=== PATIENT | female | born 1965 | race Caucasian/White ===

== ENCOUNTER 2019-01-02 09:37 | Day surgery (SDC) | payer OTHER ==
[~2019-01-02 09:37] MED LIST: BRIMONIDINE 0.2% OPHTH DROPS 5 ML EACHEYE ONE; BSS/LIDOCAINE/EPINEPHRINE 1 ML SYRINGE ONE; CYCLOPENTOLATE 1% OPHTH DROPS 2 ML ONE; EPINEPHrine 1 MG/ML AMP ONE; KETOROLAC 0.45% OPHTH DROPS ONE; PHENYLEPHRINE 2.5% OPHTH 2 ML DROPS ONE; PROPARACAINE 0.5% OPHTH DROPS 15 ML ONE; TIMOLOL 0.5% OPHTH DROPS EACHEYE ONE; TRIAMCIN/MOXIFLOX OPHTHALMIC 0.6 ML VIAL IO ONE; VANCOMYCIN OPHTHALMI 8MG/0.8ML 8 MG/0.8 ML SYRINGE IO ONE
[2019-01-02] MEDS ORDERED: KETOROLAC 0.45% OPHTH DROPS LEFTEYE ONE (10:05)
[2019-01-02] MEDS ORDERED: PHENYLEPHRINE 2.5% OPHTH 2 ML DROPS LEFTEYE ONE (10:05)
[2019-01-02] MEDS ORDERED: PROPARACAINE 0.5% OPHTH DROPS 15 ML LEFTEYE ONE ×2 (10:05→10:44)
[2019-01-02] MEDS ORDERED: CYCLOPENTOLATE 1% OPHTH DROPS 2 ML LEFTEYE ONE (10:05)
[2019-01-02] MEDS ORDERED: LACTATED RINGERS 500 ML IV ONE (10:15)
--- NOTE | 2019-01-02 10:22 | ANESTHESIA ---
Pre-Anesthesia VS, & Labs - Diagnosis Posterior subcapsular cataract - Procedure Left phaco with IOL implant - NPO Other (8 oz water at 0745) - Is Patient ?: No Home Medications and Allergies Home Medications: Ambulatory Orders Metoprolol Tartrate 01/02/19 hydroCHLOROthiazide [Hydrochlorothiazide] 01/02/19 Allergies/Adverse Reactions: Allergies Allergy/AdvReac Type Severity Reaction Status Date / Time No Known Drug Allergies Allergy Verified 01/02/19 10:11 Anes History & Medical History - Anesthetic History Anesthesia Complications: reports: No previous complications Family history of Anesthesia Complications: Denies Family history of Malignant Hyperthermia: Denies - Medical History Cardiovascular: reports: Hypertension Pulmonary: reports: None Gastrointestinal: reports: None Urinary: reports: None Neuro: reports: None Musculoskeletal: reports: None Endocrine/Autoimmune: reports: None Blood Disorders: reports: None Skin: reports: None Smoking Status: Never smoker Psychosocial: reports: No issues indicated Exam General: Alert, Oriented x3 Dental: WNL Mouth Opening: Greater than 4 Fingerbreadths Neck Mobility: Normal Mallampati classification: I Respiratory: Lungs clear Cardiovascular: Regular rate Mental/Cognitive Status: Alert/Oriented X3 Cognitive Status: Within normal limits Plan Anesthesia Type: MAC Consent for Procedure(s) Verified and Reviewed: Yes Code Status: Attempt Resuscitation ASA classification: 2-Mild systemic disease Is this case an emergency?: No
[2019-01-02] MEDS ORDERED: PROPOFOL 200 MG/20 ML VIAL IVP ONE (10:37)
[2019-01-02] MEDS ORDERED: MIDAZOLAM 2 MG/2 ML VIAL IVP ONE (10:37)
[2019-01-02] MEDS ORDERED: fentaNYL 100 MCG/2 ML VIAL IVP ONE (10:37)
[2019-01-02] MEDS ORDERED: BRIMONIDINE 0.2% OPHTH DROPS 5 ML OPTH ONE (10:42)
[2019-01-02] MEDS ORDERED: EPINEPHrine 1 MG/ML AMP IVP ONE (10:42)
[2019-01-02] MEDS ORDERED: BSS/LIDOCAINE/EPINEPHRINE 1 ML SYRINGE IO ONE (10:43)
[2019-01-02] MEDS ORDERED: CHONDR SULF/HYALURONATE SYRINGE IO ONE (10:43)
[2019-01-02] MEDS ORDERED: TIMOLOL 0.5% OPHTH DROPS OPTH ONE (10:43)
[2019-01-02] MEDS ORDERED: TRIAMCIN/MOXIFLOX OPHTHALMIC 0.6 ML VIAL IO ONE (10:44)
[2019-01-02] MEDS ORDERED: VANCOMYCIN OPHTHALMI 8MG/0.8ML 8 MG/0.8 ML SYRINGE IO ONE (10:44)
--- NOTE | 2019-01-02 11:00 | OPERATIVE REPORT ---
DATE OF SERVICE: 01/02/2019 Physician: Shiraz Villar MD PREOPERATIVE DIAGNOSIS: Visually significant cataract, left eye. This was her first cataract surger y. POSTOPERATIVE DIAGNOSIS: Visually significant cataract, left eye. This was her first cataract surge ry. DESCRIPTION OF PROCEDURE: Phacoemulsification with posterior chamber intraocular lens implant, left eye. SURGEON: Shiraz Villar MD ANESTHESIA: Monitored anesthesia care. COMPLICATIONS: None. OPERATIVE INDICATIONS: This is a 53-year-old woman with progressive vision loss in the left eye due to trace nuclear sclerotic, 2+ cortical and 2+ posterior subcapsular cataract. Best corrected visual acuity was 20/40, with glare to hand motion vision in the left eye. Indications for surgery are ove rall decrease in vision, difficulty seeing words on a computer screen, difficulty reading, difficulty seeing words, closed caption or game scores on TV, difficulty seeing street signs, difficulty drivin g in low light or at night, difficulty driving at night because of headlights from other vehicles and difficulty with glare or bright lights in any situation, and difficulty tracking a golf ball. She w as consented at length concerning risks and benefits of cataract surgery, after which she expressed a desire to proceed with surgery. OPERATIVE PROCEDURE: The patient was taken to OR #2 and placed under monitored anesthesia care. A s urgical timeout was conducted confirming correct patient, correct procedure, and correct surgical sit e. She was given topical anesthesia, and prepped and draped in the usual sterile fashion. The eye w as entered at the 6 and 3 o'clock positions. Intracameral Shugarcaine was injected into the anterior chamber, followed by Viscoat. A continuous-tear curvilinear capsulorrhexis was performed. The nucl eus was hydrodissected and phacoemulsified. The cortex was evacuated using automated infusion and as piration. Provisc was injected in the capsular bag, and a 17.5 diopter intraocular lens inserted in the bag. Approximately 0.8 mL of a mixture of triamcinolone, moxifloxacin and vancomycin was injecte d subconjunctivally in the superior quadrant for infection and inflammation prophylaxis. I and A, wa s used to evacuate the viscoelastic materials. The eye was inflated to physiologic pressure using ba lanced salt solution and found to be watertight. The patient was taken from the operating room in go od condition and given postoperative instructions. TD: 01/02/2019 10:56
[2019-01-02 11:12] VITALS: BP 158/90
== END 2019-01-02 09:38 | disposition home or self-care (01) ==
LOC: SDS 09:37
PROVIDERS: ATTEND Ophthalmology
PROC: 08RK3JZ Replacement of Left Lens with Synthetic Substitute, Percutaneous Approach (ICD-10-PCS; principal; 2019-01-02 11:00)
DX: H26.8 Other specified cataract (principal); I10 Essential (primary) hypertension; Z79.899 Other long term (current) drug therapy
CPT/HCPCS: 66984; A9270; J3490; V2632

== ENCOUNTER 2019-01-30 08:34 | Day surgery (SDC) | payer OTHER ==
[~2019-01-30 08:34] MED LIST changes: -BRIMONIDINE 0.2% OPHTH DROPS 5 ML EACHEYE ONE; +BRIMONIDINE 0.2% OPHTH DROPS 5 ML ONE; -TIMOLOL 0.5% OPHTH DROPS EACHEYE ONE; +TIMOLOL 0.5% OPHTH DROPS ONE
[2019-01-30] MEDS ORDERED: fentaNYL 100 MCG/2 ML VIAL IVP ONE (08:35)
[2019-01-30] MEDS ORDERED: MIDAZOLAM 2 MG/2 ML VIAL IVP ONE (08:35)
[2019-01-30] MEDS ORDERED: CYCLOPENTOLATE 1% OPHTH DROPS 2 ML RIGHTEYE ONE (08:50)
[2019-01-30] MEDS ORDERED: PHENYLEPHRINE 2.5% OPHTH 2 ML DROPS RIGHTEYE ONE (08:50)
[2019-01-30] MEDS ORDERED: KETOROLAC 0.45% OPHTH DROPS RIGHTEYE ONE (08:50)
[2019-01-30] MEDS ORDERED: PROPARACAINE 0.5% OPHTH DROPS 15 ML RIGHTEYE ONE (08:50)
[2019-01-30] MEDS ORDERED: LACTATED RINGERS 500 ML IV ONE (09:02)
--- NOTE | 2019-01-30 09:36 | ANESTHESIA ---
Pre-Anesthesia VS, & Labs - Diagnosis Right posterior subscapular cataract - Procedure Right phaco with IOL implant Vital Signs: Temp Pulse Resp BP Pulse Ox 37.0 C 77 18 198/106 H 100 01/30/19 09:03 01/30/19 09:03 01/30/19 09:03 01/30/19 09:03 01/30/19 09:03 Height 5 ft 9 in Weight (kg) 115.67 kg - NPO >8 hours - Is Patient ?: Not Applicable - Lab Results Lab results reviewed: No Home Medications and Allergies Home Medications: Ambulatory Orders Aspirin [Adult Aspirin Regimen] 81 mg PO DAILY 01/30/19 Metoprolol Tartrate 50 mg PO DAILY 01/02/19 hydroCHLOROthiazide [Hydrochlorothiazide] 25 mg PO DAILY 01/02/19 Aspirin [Adult Aspirin Regimen] 81 mg PO DAILY 01/30/19 Allergies/Adverse Reactions: Allergies Allergy/AdvReac Type Severity Reaction Status Date / Time No Known Drug Allergies Allergy Verified 01/02/19 10:11 Anes History & Medical History - Anesthetic History Anesthesia Complications: reports: No previous complications Family history of Anesthesia Complications: Denies Family history of Malignant Hyperthermia: Denies - Medical History Cardiovascular: reports: Hypertension Pulmonary: reports: None Gastrointestinal: reports: None Urinary: reports: None Neuro: reports: None Musculoskeletal: reports: None Endocrine/Autoimmune: reports: None Blood Disorders: reports: None Skin: reports: None Smoking Status: Never smoker - Surgical History General: Colonoscopy Eyes Ears Nose Throat (EENT): Cataracts Gynecologic: Breast reduction, Other Exam General: Alert, Oriented x3, Cooperative Dental: WNL Mouth Opening: Greater than 4 Fingerbreadths Neck Mobility: Normal Mallampati classification: I Thyromental Distance: greater than 6 cm Respiratory: Lungs clear Cardiovascular: Regular rate Mental/Cognitive Status: Alert/Oriented X3 Cognitive Status: Within normal limits Plan Anesthesia Type: MAC Consent for Procedure(s) Verified and Reviewed: Yes Code Status: Attempt Resuscitation ASA classification: 2-Mild systemic disease Is this case an emergency?: No
[2019-01-30] MEDS ORDERED: BSS/LIDOCAINE/EPINEPHRINE 1 ML SYRINGE IO ONE (10:41)
[2019-01-30] MEDS ORDERED: BRIMONIDINE 0.2% OPHTH DROPS 5 ML OPTH ONE (10:41)
[2019-01-30] MEDS ORDERED: EPINEPHrine 1 MG/ML AMP IVP ONE (10:41)
[2019-01-30] MEDS ORDERED: TIMOLOL 0.5% OPHTH DROPS OPTH ONE (10:41)
[2019-01-30] MEDS ORDERED: CHONDR SULF/HYALURONATE SYRINGE IO ONE (10:41)
[2019-01-30] MEDS ORDERED: TRIAMCIN/MOXIFLOX OPHTHALMIC 0.6 ML VIAL IO ONE (10:42)
[2019-01-30] MEDS ORDERED: VANCOMYCIN OPHTHALMI 8MG/0.8ML 8 MG/0.8 ML SYRINGE IO ONE (10:42)
[2019-01-30 11:08] VITALS: BP 163/86
--- NOTE | 2019-01-30 11:15 | OPERATIVE REPORT ---
DATE OF SERVICE: 01/30/2019 Physician: Shiraz Villar MD PREOPERATIVE DIAGNOSIS: Visually significant cataract, right eye. Cataract surgery was performed on the left eye on 01/02/2019. POSTOPERATIVE DIAGNOSIS: Visually significant cataract, right eye. Cataract surgery was performed o n the left eye on 01/02/2019. PROCEDURE: Phacoemulsification with posterior chamber intraocular lens implant, right eye. SURGEON: Shiraz Villar MD ANESTHESIA: Monitored anesthesia care. COMPLICATIONS: None. OPERATIVE INDICATIONS: This is a 53-year-old woman with progressive vision loss in the right eye due to trace nuclear sclerotic, 2+ cortical and 2+ posterior subcapsular cataract. Best corrected visua l acuity was 20/40, with glare to hand motion in the right eye. Indications for surgery were overall decrease in vision, difficulty seeing words on a computer screen, difficulty reading, difficulty see ing words, closed captions or game scores on TV, difficulty seeing street signs, difficulty driving i n low light or at night, difficulty driving at night because of headlights from other vehicles, diffi culty with glare or bright lights in any situation, and difficulty tracking a golf ball. She was con sented at length concerning risks and benefits of cataract surgery, after which she expressed a dulce e to proceed with surgery. OPERATIVE PROCEDURE: Patient was taken to OR #3 and placed under monitored anesthesia care. A surgi abdi timeout was conducted confirming correct patient, correct procedure, and correct surgical site. She was given topical anesthesia and then prepped and draped in the usual sterile fashion. The eye w as entered at the 12 and 9 o'clock positions. Intracameral Shugarcaine was injected into the anterio r chamber, followed by Viscoat. A continuous-tear curvilinear capsulorrhexis was performed. The nuc leus was hydrodissected and phacoemulsified. The cortex was evacuated using automated infusion and a spiration. Provisc was injected into the capsular bag, and a 16.5 diopter intraocular lens inserted in the bag. Approximately 0.8 mL of a mixture of triamcinolone, moxifloxacin and vancomycin was inje cted subconjunctivally in the superior quadrant for infection and inflammation prophylaxis. I and A was used to evacuate the viscoelastic materials. The eye was inflated to physiologic pressure using balanced salt solution and found to be watertight. Patient was taken from the operating room in good condition and given postoperative instructions. TD: 01/30/2019 11:02
== END 2019-01-30 08:35 | disposition home or self-care (01) ==
LOC: SDS 08:34
PROVIDERS: ATTEND Ophthalmology
PROC: 08RJ3JZ Replacement of Right Lens with Synthetic Substitute, Percutaneous Approach (ICD-10-PCS; principal; 2019-01-30 09:00)
DX: H26.05 Posterior subcapsular polar infantile and juvenile cataract (principal); H26.01 Infantile and juvenile cortical, lamellar, or zonular cataract; H26.03 Infantile and juvenile nuclear cataract; I10 Essential (primary) hypertension; Z79.899 Other long term (current) drug therapy; Z79.82 Long term (current) use of aspirin; Z98.42 Cataract extraction status, left eye
CPT/HCPCS: 66984; A9270; J3490; V2632